=== PATIENT | female | born 1990 | race African-American/Black ===

== ENCOUNTER 2017-04-27 15:22 | Emergency (ER) | payer SELFPAY ==
--- NOTE | 2017-04-27 15:30 | NUR ---
PT WAS CALLED TO TRIAGE AREA, NO RESPONSE.
--- NOTE | 2017-04-27 15:45 | NUR ---
PT WAS CALLED 2nd TIME, NO RESPONSE.
== END 2017-04-27 16:09 | disposition left against medical advice (07) ==
LOC: ER 15:26
DX: Z53.21 Procedure and treatment not carried out due to patient leaving prior to being seen by health care provider (principal)